=== PATIENT | female | born 1965 ===

== ENCOUNTER 2021-03-09 06:56 | Day surgery (SDC) | payer OTHER ==
[~2021-03-09 06:56] MED LIST: ADULT LOW DOSE81 M1 PO; GLIPIZIDE XL5 MG PO; LIPITOR20 MG PO; LOSARTAN-HCTZ1 EAC2 PO; METFORMIN HCL500 M3 PO; PRILOSEC OTC20 MG PO; TENORMIN50 M1 PO
== END 2021-03-09 20:30 | disposition home or self-care (01) ==
LOC: CIR.AMB 06:56 → O/R 15:49 → CIR.AMB 15:49 → O/R 20:30
PROVIDERS: ATTEND Specialist
DX: D07.2 Carcinoma in situ of vagina (principal); Z20.822 Contact with and (suspected) exposure to COVID-19